=== PATIENT | female | born 1965 | race Caucasian/White ===

== ENCOUNTER 2022-08-19 12:48 | Day surgery (SDC) | payer BC ==
[~2022-08-19 12:48] MED LIST: Lidocaine 1% PF 5 ML VIAL ONE; Sodium Bicarbonate 2.5 MEQ/5 ML VIAL ONE
[2022-08-19 14:32] VITALS: BP 112/73; TEMP 99
[2022-08-19 14:34] VITALS: BMI 24.3
== END 2022-08-19 14:05 | disposition home or self-care (01) ==
LOC: ULT 12:48
PROVIDERS: ATTEND Nurse Practitioner Family
PROC: 0G9G3ZX Drainage of Left Thyroid Gland Lobe, Percutaneous Approach, Diagnostic (ICD-10-PCS; principal; 2022-08-19)
DX: E04.1 Nontoxic single thyroid nodule (principal)
CPT/HCPCS: 10005; 88173; 88305

== ENCOUNTER 2023-10-05 15:17 | Outpatient (CLI) | payer BC | END 2023-10-05 15:18 | disposition home or self-care (01) | LOC: BICMAMMO 15:17 | PROVIDERS: ATTEND Nurse Practitioner Family | DX: Z13.820 Encounter for screening for osteoporosis (principal); Z78.0 Asymptomatic menopausal state; M85.89 Other specified disorders of bone density and structure, multiple sites | CPT/HCPCS: 77080 ==